=== PATIENT | female | born 1935 | race Hispanic/Latino ===

== ENCOUNTER 2016-12-15 10:56 | Emergency (ER) | payer MEDICARE, OTHER ==
[2016-12-15 10:56] VITALS: PULSE 90
[2016-12-15 11:11] VITALS: RESP 18; TEMP 98; BMI 32.1
--- NOTE | 2016-12-15 11:45 | ED PDOC ---
Arrival/HPI - General Historian: Patient, Family - General Chief Complaint: Weakness/Neurological Deficit Time Seen by Provider: 12/15/16 11:00 - History of Present Illness Narrative History of Present Illness (Text): 12/15/16 11:37 This is a 81 yo F with PMH significant for CHF, DM, CAD, HTN, AFib (not on anticoagulation) that presents with several days of weakness and mild sob. Pt states that she had cold like symptoms that started 4 days ago, called her PMD ( Ac) who prescribe her medications including abx. She noticed that her bottom lip began to "shake" at certain times in the day. She admits to having stopped one of her home medications, benztropine, for the last 4 days as well since it caused drowsiness. She called her PMD again who instructed her to come to the ED for further evaluation. Currently she states she still feels mildly weak and sob, but denies any fevers, chills, chest pain, palpitations, nausea, vomiting or any urinary symptoms. No complaints of any pain or headache. PMD: Dr. Shen PMHx:CHF, DM, CAD, HTN, AFib (not on anticoagulation) PSHx: Rt lumpectomy 2000 SHx: live alone, unemployed, denied tobacco/etoh/ illicit drug abuse Allergies: NKDA Meds: review chart ([place]) Past Medical History - Provider Review Nursing Documentation Reviewed: Yes - Infectious Disease Hx of Infectious Diseases: None - Tetanus Immunization Tetanus Immunization: Unknown - Reproductive Menopause: Yes - Cardiac Hx Cardiac Disorders: Yes (mi) Hx Congestive Heart Failure: Yes Hx Hypertension: Yes - Pulmonary Hx Respiratory Disorders: Yes Hx Pneumonia: Yes Other/Comment: on admission O2 sat was 89 on RA, 97 with 3 liters O2 - Neurological Hx Neurological Disorder: Yes (syncope) Hx Transient Ischemic Attacks (TIA): Yes - HEENT Hx HEENT Disorder: Yes (contacts, glasses,STRABISMUS 10-27-14) Hx Epistaxis: Yes - Endocrine/Metabolic Hx Diabetes Mellitus Type 2: Yes - Hematological/Oncological Hx Shingles: Yes - Integumentary Hx Dermatological Disorder: Yes (ROSACEAE) Other/Comment: face slightly reddened, bruise to right hip, reddened buttocks, small .5cm round abrasion left great toe, large bruise and swelling left knee, bruises right knee, old scar left mid thigh 2cm x .5cm pt stated "I have had that since I was 32 yrs old" - Musculoskeletal/Rheumatological Hx Arthritis: Yes - Gastrointestinal Hx Gastrointestinal Disorders: Yes (c-diff, diarrhea) Hx Gastroesophageal Reflux: Yes - Genitourinary/Gynecological Hx Genitourinary Disorders: Yes Hx Incontinence: Yes (stress) Hx Urinary Tract Infection: Yes Other/Comment: 2 way patrick - Psychiatric Hx Psychophysiologic Disorder: Yes Hx Depression: Yes Hx Substance Use: No - Past Surgical History Past Surgical History: No Previous - Surgical History Other/Comment: lumpectomy r breast - Anesthesia Hx Anesthesia: Yes Hx Anesthesia Reactions: No Hx Malignant Hyperthermia: No - Suicidal Assessment Feels Threatened In Home Enviroment: No Family/Social History - Physician Review Nursing Documentation Reviewed: Yes Family/Social History: No Known Family HX Smoking Status: Former Smoker Hx Alcohol Use: No Hx Substance Use: No Hx Substance Use Treatment: No Allergies/Home Meds Allergies/Adverse Reactions: Allergies pravastatin Adverse Reaction (Verified 12/15/16 11:27) SWELLING Home Medications: Home Meds Medication Instructions Recorded Confirmed Benztropine [Benztropine Mesylate] 2 mg PO DAILY 05/13/16 12/15/16 Digoxin [Digitek] 125 mcg PO DAILY 05/13/16 12/15/16 Diltiazem HCl [Cartia Xt] 240 mg PO DAILY 05/13/16 12/15/16 Furosemide [Lasix] 40 mg PO DAILY 05/13/16 12/15/16 Losartan Potassium [Cozaar] 100 mg PO DAILY 05/13/16 12/15/16 MetFORMIN [glucOPHAGE] 1,000 mg PO BID 05/13/16 12/15/16 glyBURIDE [Glyburide] 5 mg PO BID 05/13/16 12/15/16 Azithromycin [Zithromax] 250 mg PO DAILY 12/15/16 12/15/16 Trifluoperazine HCl [Stelazine] 10 mg PO BID 12/15/16 12/15/16 Review of Systems - Review of Systems Constitutional: Fatigue. absent: Fevers Eyes: Normal. absent: Vision Changes, Eye Pain ENT: Normal Respiratory: SOB. absent: Cough, Sputum, Wheezing Cardiovascular: Normal. absent: Chest Pain, Palpitations Gastrointestinal: Normal. absent: Abdominal Pain, Nausea, Vomiting Genitourinary Female: Normal. absent: Dysuria, Frequency Musculoskeletal: Normal. absent: Arthralgias, Back Pain Skin: Normal Neurological: Normal. absent: Headache, Dizziness Endocrine: Normal Hemo/Lymphatic: Normal Psychiatric: Normal Physical Exam Vital Signs Reviewed: Yes Temperature: Afebrile Blood Pressure: Normal Pulse: Tachycardic Respiratory Rate: Tachypneic Appearance: Positive for: Non-Toxic, Comfortable Pain Distress: None Mental Status: Positive for: Alert and Oriented X 3 - Systems Exam Head: Present: Atraumatic, Normocephalic Pupils: Present: PERRL Mouth: Present: Moist Mucous Membranes Respiratory/Chest: Present: Good Air Exchange, Rales (at bases) Cardiovascular: Present: Regular Rate and Rhythm, Normal S1, S2 Abdomen: Present: Normal Bowel Sounds. No: Tenderness, Distention Upper Extremity: Present: NORMAL PULSES Lower Extremity: Present: NORMAL PULSES, Swelling (1+ pitting edema) Neurological: Present: Speech Normal, Motor Func Grossly Intact Skin: Present: Warm, Dry Psychiatric: Present: Alert, Oriented x 3 Medical Decision Making ED Course and Treatment: 12/15/16 11:48 81 yo F with extensive PMH that includes Afib, HTN and CAD that has weakness and sob for last 4 days. Plan: - labs - UA - EKG, CXR - Reassess and disposition 12/15/16 11:53 EKG - Afib at 99 bpm, lef axis deviation, no st changes CXR - No active disease as read by Dr Taylor Labs unremarkable, including cardiac enzymes 12/15/16 13:46 Pt feeling much better and requesting to go home. Case discussed with PMD ( Hugo) who is comfortable with discharge home and f/u out patient. Instructed to pt to follow up within the next week and to return to ED with any new or worsening symptoms. She was also instructed to resume home medications as prescribed. Offered admission to pt but she refused. ([place]ad [place]) pt seen with resident. pt complaining of of weakness, mild shortness of breath for last few days. s/p zpak for "cold". pt complaining of mild weakness, shortness of breath, and "lip shaking". pt stopped benztropine, thinking it was "making her drowsy". exam: awake, alert, smiling in nad head nc/at, neck supple , cv:irregularly irregular, no murmurs, lungs cta b/l,abd soft no ttp extremitiies non c/c/e neuro, intact, +5/5 muslce strenght (-)tremor +normal sensation +cn2-12 intact +oriented x 3 a/p suspect 2/2 stopping benztropine, r/ o other cardiac metabolic, infectious etiology - pt labs unremarkable, pt offered admission, as obs for weakness and neuro eval. pt specifically asking for dc., updated pmd, advse oupt follow up and return precautions 12/15/16 14:40 (Quentin Malagon) - Lab Interpretations Lab Results: 12/15/16 11:30 12/15/16 11:30 Lab Results 12/15/16 11:50: Urine Color Yellow, Urine Appearance Sl cloudy, Urine pH 6.5, Ur Specific [place] 1.010, Urine Protein Negative, Urine Glucose (UA) Negative, Urine Ketones Negative, Urine Blood Moderate H, Urine Nitrate Negative, Urine Bilirubin Negative, Urine Urobilinogen 0.2, Ur Leukocyte Esterase Small H, Urine RBC 0 - 2, Urine WBC 0 - 2, Ur Epithelial Cells 0 - 2 12/15/16 11:30: Digoxin 1.0 12/15/16 11:30: PT 12.0 H, INR 1.11 H, APTT 35.2 H 12/15/16 11:30: WBC 10.9, RBC 4.96, Hgb 15.0, Hct 43.8, MCV 88.3, MCH 30.2, MCHC 34.2, RDW 13.4, Plt Count 338, MPV 8.9, Gran % 73.9 H, Lymph % (Auto) 16.5 L, [place] % (Auto) 8.5 H, Eos % (Auto) 0.6 L, Baso % (Auto) 0.5, Gran # 8.06 H, Lymph # 1.8, [place] # 0.9 H, Eos # 0.1, Baso # 0.05 12/15/16 11:30: TSH 3rd Generation 1.24 12/15/16 11:30: Sodium 139, Potassium 3.5 L, Chloride 101, Carbon Dioxide 26, Anion Gap 16, BUN 18, Creatinine 0.7, Est GFR ( Amer) > 60, Est GFR (Non- Af Amer) > 60, Random Glucose 171 H, Calcium 9.8, Phosphorus 3.6, Magnesium 1.8 , Total Bilirubin 0.5, AST 24, ALT 25, Alkaline Phosphatase 77, Lactate Dehydrogenase 363, Total Creatine Kinase 30 L, Troponin I 0.01, NT-Pro-B Natriuret Pep 485 H, Total Protein 8.2, Albumin 4.3, Globulin 3.9, Albumin/ Globulin Ratio 1.1 - RAD Interpretation Radiology Orders: 12/15/16 11:34 CHEST PORTABLE [RAD] Stat Disposition/Present on Arrival - Present on Arrival Any Indicators Present on Arrival: Yes History of DVT/PE: No History of Uncontrolled Diabetes: Yes Urinary Catheter: No History of Decub. Ulcer: No History Surgical Site Infection Following: None - Disposition Have Diagnosis and Disposition been Completed?: Yes Disposition Time: 13:52 Patient Plan: Discharge - Disposition Diagnosis: Weakness Disposition: HOME/ ROUTINE Condition: IMPROVED Discharge Instructions (ExitCare): Weakness (ED) Additional Instructions: You were evaluated for generalized weakness and some mild sob. Please resume home medications as prescribed. Follow up with your primary care physician within the next week. Return to the ED with any new or worsening symptoms. Referrals: Juan Carlos Shen MD [Primary Care Provider] - Follow up with primary
[2016-12-15 11:58] LABS: ADD MANUAL DIFF? NO
[2016-12-15 12:02] LABS: PH,URINE 6.5 (4.7-8.0); URINE BILIRUBIN NEGATIVE (NEGATIVE); URINE BLOOD MODERATE (NEGATIVE); URINE GLUCOSE (UA) NEGATIVE (NEGATIVE); URINE KETONE NEGATIVE (NEGATIVE); URINE LEUKOCYTE ESTERASE SMALL Leu/uL (NEGATIVE); URINE PROTEIN NEGATIVE mg/dL (<30 mg/dL); URINE UROBILINOGEN 0.2 E.U./dL (<1 E.U./dL)
[2016-12-15 12:04] LABS: URINE APPEARANCE SL CLOUDY (CLEAR); URINE COLOR YELLOW (YELLOW)
--- NOTE | 2016-12-15 12:05 | RAD ---
HISTORY: sob, weakness COMPARISON: 05/13/2016 FINDINGS: LUNGS: No active pulmonary disease. PLEURA: No significant pleural effusion identified, no pneumothorax apparent. CARDIOVASCULAR: Normal. OSSEOUS STRUCTURES: No significant abnormalities. VISUALIZED UPPER ABDOMEN: Normal. OTHER FINDINGS: None. IMPRESSION: No active disease.
[2016-12-15 12:06] LABS: BASO # 0.05 K/mm3 (0.0-2.0); BASO % 0.5 % (0.0-3.0); EOS # 0.1 (0.0-0.7); EOS % 0.6 % (1.5-5.0); GRAN # 8.06 (1.4-6.5); GRAN % 73.9 % (50.0-68.0); HEMATOCRIT 43.8 % (36.0-48.0); LYMPH # 1.8 (1.2-3.4); LYMPH % 16.5 % (22.0-35.0); MEAN CELL VOLUME 88.3 fL (80.0-105.0); MEAN CORPUSCULAR HEMOGLOBIN 30.2 pg (25.0-35.0); MEAN CORPUSCULAR HGB CONC 34.2 g/dl (31.0-37.0); MEAN PLATELET VOLUME 8.9 fl (7.0-11.0); MONO # 0.9 (0.1-0.6); MONO % 8.5 % (1.0-6.0); PLATELET COUNT 338 10^3/uL (120.0-450.0); RED CELL DISTRIBUTION WIDTH 13.4 % (11.5-14.5); WHITE BLOOD COUNT 10.9 10^3/ul (4.5-11.0)
[2016-12-15 12:11] LABS: INR 1.11 (0.93-1.08); PARTIAL THROMBOPLASTIN TIME 35.2 Seconds (23.7-30.8)
[2016-12-15 12:13] LABS: URINE EPITHELIAL CELLS 0 - 2 /hpf (0-5); URINE RBC 0 - 2 /hpf (0-2); URINE WBC 0 - 2 /hpf (0-6)
[2016-12-15 12:16] LABS: ALB/GLOB RATIO 1.1 (1.1-1.8); ALKALINE PHOSPHATASE 77 U/L (38-133); ALT/SGPT 25 U/L (7-56); AST/SGOT 24 U/L (15-39); BILIRUBIN,TOTAL 0.5 mg/dL (0.2-1.3); BLOOD UREA NITROGEN 18 mg/dL (7-21); CALCIUM 9.8 mg/dL (8.4-10.5); CARBON DIOXIDE 26 mmol/L (21-33); CHLORIDE 101 mmol/L (98-107); GFR AFRICAN-AMERICAN > 60; GLUCOSE,RANDOM 171 mg/dL (70-110); MAGNESIUM 1.8 mg/dL (1.7-2.2); PHOSPHOROUS 3.6 mg/dL (2.5-4.5); POTASSIUM 3.5 mmol/L (3.6-5.0); SODIUM 139 mmol/L (132-148); TOTAL PROTEIN 8.2 g/dL (5.8-8.3)
[2016-12-15 12:35] LABS: TROPONIN I 0.01 ng/mL
[2016-12-15 13:53] VITALS: BP 130/91; PULSE 98; O2SAT 100
--- NOTE | 2016-12-15 15:18 | CARD ---
APPROVED REPORT EKG Measurement Heart [id number] <Conclusion> Atrial fibrillation Left axis deviation PRWP Anterolateral infarct, age undetermined STTW changes c/w ischemia
== END 2016-12-15 14:40 | disposition home or self-care (01) ==
LOC: ED 10:56
DX: R53.1 Weakness (principal); I11.0 Hypertensive heart disease with heart failure; I50.9 Heart failure, unspecified; I25.2 Old myocardial infarction; E11.9 Type 2 diabetes mellitus without complications; Z87.891 Personal history of nicotine dependence

== ENCOUNTER 2017-03-25 12:12 | Emergency (ER) | payer MEDICARE, OTHER ==
[2017-03-25 12:12] VITALS: PULSE 90; BMI 32.1
[2017-03-25 12:22] VITALS: TEMP 97.9
--- NOTE | 2017-03-25 12:27 | ED PDOC ---
Arrival/HPI - General Chief Complaint: Lower Extremity Problem/Injury Time Seen by Provider: 03/25/17 12:23 Historian: Patient - History of Present Illness Narrative History of Present Illness (Text): 03/25/17 12:25 81 y/o female, pmh including htn/dm/cad/chf, allergic to pravastatin, c/o rt. calf pain x 2 weeks with no fall or trauma. Pt. stated that she has been having the rt. lower back pain radiating to the rt. calf for the past 2-3 weeks , on and off, no pain medications taken, no numbness or tingling, no night sweat , no palpitation, no weight loss, no urinary symptoms, no other medical or psychological complaints. Past Medical History - Provider Review Nursing Documentation Reviewed: Yes - Infectious Disease Hx of Infectious Diseases: None - Tetanus Immunization Tetanus Immunization: Unknown - Cardiac Hx Cardiac Disorders: Yes (mi) Hx Congestive Heart Failure: Yes Hx Hypertension: Yes - Pulmonary Hx Respiratory Disorders: Yes Hx Pneumonia: Yes Other/Comment: on admission O2 sat was 89 on RA, 97 with 3 liters O2 - Neurological Hx Neurological Disorder: Yes (syncope) Hx Transient Ischemic Attacks (TIA): Yes - HEENT Hx HEENT Disorder: Yes (contacts, glasses,STRABISMUS 10-27-14) Hx Epistaxis: Yes - Endocrine/Metabolic Hx Diabetes Mellitus Type 2: Yes - Hematological/Oncological Hx Shingles: Yes - Integumentary Hx Dermatological Disorder: Yes (ROSACEAE) Other/Comment: face slightly reddened, bruise to right hip, reddened buttocks, small .5cm round abrasion left great toe, large bruise and swelling left knee, bruises right knee, old scar left mid thigh 2cm x .5cm pt stated "I have had that since I was 32 yrs old" - Musculoskeletal/Rheumatological Hx Arthritis: Yes - Gastrointestinal Hx Gastrointestinal Disorders: Yes (c-diff, diarrhea) Hx Gastroesophageal Reflux: Yes - Genitourinary/Gynecological Hx Genitourinary Disorders: Yes Hx Incontinence: Yes (stress) Hx Urinary Tract Infection: Yes Other/Comment: 2 way patrick - Psychiatric Hx Psychophysiologic Disorder: Yes Hx Depression: Yes Hx Substance Use: No - Past Surgical History Past Surgical History: No Previous - Surgical History Other/Comment: lumpectomy r breast - Anesthesia Hx Anesthesia: Yes Hx Anesthesia Reactions: No Hx Malignant Hyperthermia: No - Suicidal Assessment Feels Threatened In Home Enviroment: No Family/Social History - Physician Review Nursing Documentation Reviewed: Yes Family/Social History: Unknown Family HX Smoking Status: Former Smoker Hx Alcohol Use: No Hx Substance Use: No Hx Substance Use Treatment: No Allergies/Home Meds Allergies/Adverse Reactions: Allergies pravastatin Adverse Reaction (Verified 03/25/17 12:23) SWELLING Home Medications: Home Meds Medication Instructions Recorded Confirmed Benztropine [Benztropine Mesylate] 1 mg PO DAILY 05/13/16 03/25/17 Digoxin [Digitek] 0.125 mg PO DAILY 05/13/16 03/25/17 Diltiazem HCl [Cartia Xt] 240 mg PO DAILY 05/13/16 03/25/17 Furosemide [Lasix] 40 mg PO DAILY 05/13/16 03/25/17 Losartan Potassium [Cozaar] 100 mg PO DAILY 05/13/16 03/25/17 MetFORMIN [glucOPHAGE] 1,000 mg PO BID 05/13/16 03/25/17 glyBURIDE [Glyburide] 5 mg PO BID 05/13/16 03/25/17 Trifluoperazine HCl [Stelazine] 15 mg PO BID 12/15/16 03/25/17 Aspirin [Ecotrin] 81 mg PO DAILY 03/25/17 03/25/17 Cetirizine HCl [Allergy] 10 mg PO DAILY 03/25/17 03/25/17 Review of Systems - Review of Systems Constitutional: absent: Fatigue, Fevers Eyes: absent: Vision Changes ENT: absent: Hearing Changes Respiratory: absent: SOB, Cough, Sputum Cardiovascular: absent: Chest Pain Gastrointestinal: absent: Abdominal Pain, Diarrhea, Nausea, Vomiting, Appetite Changes Musculoskeletal: Arthralgias, Myalgias. absent: Back Pain, Neck Pain, Joint Swelling Skin: absent: Rash, Pruritis, Skin Lesions Physical Exam Vital Signs Reviewed: Yes Vital Signs Temp Pulse Resp BP Pulse Ox 03/25/17 12:14 97.9 F 95 H 18 151/92 H 96 Temperature: Afebrile Blood Pressure: Normal Pulse: Regular Respiratory Rate: Normal Appearance: Positive for: Well-Appearing, Non-Toxic Pain Distress: Severe Mental Status: Positive for: Alert and Oriented X 3 - Systems Exam Head: Present: Atraumatic, Normocephalic Pupils: Present: PERRL Extroacular Muscles: Present: EOMI Conjunctiva: Present: Normal Mouth: Present: Moist Mucous Membranes Neck: Present: Normal Range of Motion Respiratory/Chest: Present: Clear to Auscultation, Good Air Exchange. No: Respiratory Distress, Accessory Muscle Use Cardiovascular: Present: Regular Rate and Rhythm, Normal S1, S2. No: Murmurs Abdomen: Present: Normal Bowel Sounds. No: Tenderness, Distention, Peritoneal Signs Back: Present: Normal Inspection, Other (LS spine: no midline tenderness or step off, no rash, FROM without limitation, sensation intact, motor 5/5, no saddling gait, walking with the walker. ). No: CVA Tenderness, Midline Tenderness, Paraspinal Tenderness Upper Extremity: Present: Normal Inspection, Normal ROM, NORMAL PULSES, Neurovascularly Intact, Capillary Refill < 2s. No: Cyanosis, Edema, Deformity Lower Extremity: Present: Normal Inspection, NORMAL PULSES, Neurovascularly Intact, Capillary Refill < 2 s. No: Edema, Cyanosis, Hector's Sign, Tenderness, Swelling, Erythema, Deformity, Temperature Abnormalties Neurological: Present: GCS=15, Speech Normal, Motor Func Grossly Intact, Gait Normal, Memory Normal, Normal 2Pt Descrimination Skin: Present: Warm, Dry, Normal Color. No: Rashes Psychiatric: Present: Alert, Oriented x 3, Normal Insight, Normal Concentration Medical Decision Making ED Course and Treatment: 03/25/17 12:27 -CT L spine -RLE Venuous Doppler -Morphine 4mg IM -Observe and reassess 03/25/17 14:09 -RLE Venuous Doppler: as per preliminary report, no acute dvt -CT show degenerative changes with foraminal stenosis with disc bulging. -Pt. is walking around with normal gait and posture, feeling much better, decadron IM ordered -Discharge home with lidoderm patch, bed rest, follow up with your own pmd and pain management/orthopedic spine within 2 days, return to the ER for any new or worsening signs or symptoms. - RAD Interpretation Radiology Orders: 03/25/17 12:28 DUPLEX LOWER EXTRM VEIN RIGHT [US] Stat 03/25/17 12:39 LUMBAR SPINE W/O CONTRAST [CT] Stat RLE Venuous Doppler: as per preliminary report, no acute dvt CT L Spine: VERTEBRAE: Unremarkable. No fracture. Normal alignment. DISCS/SPINAL CANAL/NEURAL FORAMINA: L1-2: Moderate disc bulge. No stenosis L2-3: Disc bulge and degeneration. No stenosis L3-4: Disc degeneration with loss of disc height and disc bulging. Facet arthropathy. There is a moderate degree of central stenosis and mild left- sided foraminal stenosis. L4-5: Mild disc bulge and facet arthropathy. Mild stenosis. Mild foraminal stenosis L5-S1: Facet arthropathy and disc degeneration with moderate foraminal stenosis. No significant central stenosis. PARASPINAL SOFT TISSUES: Unremarkable. OTHER FINDINGS: None. 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 Disposition/Present on Arrival - Present on Arrival Any Indicators Present on Arrival: No History of DVT/PE: No History of Uncontrolled Diabetes: Yes Urinary Catheter: No History of Decub. Ulcer: No History Surgical Site Infection Following: None - Disposition Have Diagnosis and Disposition been Completed?: Yes Diagnosis: Bulging lumbar disc, Osteoarthritis, Foraminal stenosis of lumbar region Disposition: HOME/ ROUTINE Disposition Time: 14:12 Patient Plan: Discharge Condition: IMPROVED Additional Instructions: -Discharge home with lidoderm patch, bed rest, follow up with your own pmd and pain management/orthopedic spine within 2 days, return to the ER for any new or worsening signs or symptoms. Prescriptions: Lidocaine 5% [Lidoderm] 1 patch TOP DAILY PRN #14 patch PRN Reason: Other Referrals: Juan Carlos Shen MD [Primary Care Provider] - Follow up with primary Deshawn Miranda MD [Staff Provider] - Follow up with primary Forms: [employer] (Turkmen)
[2017-03-25] MEDS ORDERED: Morphine 4 mg/ml ISec IM STA (12:39)
--- NOTE | 2017-03-25 13:45 | CT ---
PROCEDURE: CT Lumbar Spine without contrast HISTORY: lower back pain radiating to RLE x 3 weeks COMPARISON: None. TECHNIQUE: Axial computed tomography images were obtained of the lumbar spine without the use of intravenous contrast. Coronal and sagittal reformatted images were created and reviewed. Radiation dose: Total exam DLP = mGy-cm. This CT exam was performed using one or more of the following dose reduction techniques: Automated exposure control, adjustment of the mA and/or kV according to patient size, and/or use of iterative reconstruction technique. FINDINGS: VERTEBRAE: Unremarkable. No fracture. Normal alignment. DISCS/SPINAL CANAL/NEURAL FORAMINA: L1-2: Moderate disc bulge. No stenosis L2-3: Disc bulge and degeneration. No stenosis L3-4: Disc degeneration with loss of disc height and disc bulging. Facet arthropathy. There is a moderate degree of central stenosis and mild left-sided foraminal stenosis. L4-5: Mild disc bulge and facet arthropathy. Mild stenosis. Mild foraminal stenosis L5-S1: Facet arthropathy and disc degeneration with moderate foraminal stenosis. No significant central stenosis. PARASPINAL SOFT TISSUES: Unremarkable. OTHER FINDINGS: None. 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
[2017-03-25 14:55] VITALS: BP 161/91; PULSE 86; RESP 19; O2SAT 97
--- NOTE | 2017-03-25 18:10 | US ---
PROCEDURE: Right lower extremity venous US HISTORY: Leg pain and swelling. Evaluate for DVT. PHYSICIAN(S): Michael Cid M.D. TECHNIQUE: Duplex sonography and color-flow Doppler with graded compression were used to evaluate the deep venous system of the right lower extremity. FINDINGS: The visualized deep venous system of the right lower extremity is sonographically normal and compressible. Normal waveforms and augmentation are seen. There is no sonographic evidence for deep venous thrombosis in the visualized segments of the right lower extremity. There is a complex 1.7 x 7.5 cm fluid collection in the right popliteal fossa, consistent with a Sorensen cyst. IMPRESSION: 1. No sonographic evidence for deep venous thrombosis in the visualized segments of the right lower extremity.
== END 2017-03-25 15:06 | disposition home or self-care (01) ==
LOC: ED 12:12
DX: M51.26 Other intervertebral disc displacement, lumbar region (principal); M48.06 Spinal stenosis, lumbar region; I10 Essential (primary) hypertension; Z86.73 Personal history of transient ischemic attack (TIA), and cerebral infarction without residual deficits; Z87.891 Personal history of nicotine dependence
CPT/HCPCS: 72131; 93971; 96372; 99284; J1100; J2270